=== PATIENT | male | born 1980 | race Caucasian/White ===

== ENCOUNTER 2019-06-28 04:03 | Inpatient (IN) ==
[2019-06-28] MEDS ORDERED: CLINDAMYCIN INJ 600 MG in PREMIX 1 EACH IV STA (04:50)
[2019-06-28] MEDS ORDERED: DIPH/TET/ACEL PERT BOOSTER VACCINE 0.5 ML VIAL IM ONE (04:50)
[2019-06-28] MEDS ORDERED: VANCOMYCIN INJ 1,000 MG in SODIUM CHLORIDE 0.9% 250 ML IV STA (05:42)
[2019-06-28 05:53] LABS: Basophils # 0.1 10*3/uL (0.0-0.2); Eosinophils # 0.4 10*3/uL (0.0-0.87); Eosinophils % 3.9 % (0.00-10.9); Hematocrit 43.7 VOL% (42.0-52.0); Hemoglobin 14.1 GM/DL (14.0-18.0); Immature Granulocytes % 1.8 %; Immature Granulocytes Absolute 0.17 #; Lymphocytes % 21.3 % (21.2-54.2); Mean Corpuscular HGB Conc 32.3 GM/DL (32-36); Mean Corpuscular Volume 89.5 FL (87-102); Mean Platelet Volume 9.9 FL (9.6-12.0); Monocytes % 11.6 % (1.7-12.7); Neutrophils % 60.4 % (38.7-73.9); Platelet Count 322 T/CUMM (130-400); Red Blood Count 4.88 MC/CUMM (3.8-5.5); Red Cell Distribution Width 12.1 % (9.3-17.3); White Blood Count 9.3 T/CUMM (4-12)
[2019-06-28 06:16] LABS: Albumin 3.1 G/DL (3.4-5.0); Bilirubin,Total 0.6 MG/DL (0.2-1.0); Calcium 8.9 MG/DL (8.5-10.1); Osmolality,Calculated 268.2 MOS/KG (273-304); Total Protein 7.5 G/DL (6.4-8.3)
[2019-06-28] MEDS ORDERED: hydrALAZINE 20 MG/1 ML VIAL IV PRN (06:22)
[2019-06-28 06:44] LABS: Eosinophils 8 % (0-10); Hypochromasia Slight; Lymphocytes 20 % (20-55); Platelet Estimate Adequate; Segmented Neutrophils 61 % (50-85); Total Cells Counted 100
[2019-06-28] MEDS ORDERED: VANCOMYCIN INJ 1,000 MG in SODIUM CHLORIDE 0.9% 250 ML IV ONE (06:44)
[2019-06-28] MEDS ORDERED: PIPERACILLIN/TAZOBACTAM 3,375 MG VIAL IV ONE (06:48)
[2019-06-28] MEDS ORDERED: SODIUM CHLORIDE 0.9% 100 ML IV ONE (06:48)
[2019-06-28] MEDS ORDERED: VANCOMYCIN 1,000 MG VIAL ONE (06:48)
[2019-06-28 07:18] LABS: HIV Antigen/Antibody Result Nonreactive (Nonreactive); Hepatitis B Surface Ag Quant < 0.10 Index; Hepatitis B Surface Ag Result Negative (Negative); Hepatitis C Virus Ab Quant 0.32 Index; Hepatitis C Virus Ab Result Negative (Negative)
[2019-06-28] MEDS: PIPERACILLIN/TAZOBACTAM 3,375 MG in SODIUM CHLORIDE 0.9% 100 ML IV SCH ×3 (07:24→23:13)
[2019-06-28] MEDS ORDERED: ENOXAPARIN 40 MG/0.4 ML SYRINGE SUBCUT SCH (08:00)
[2019-06-28] MEDS ORDERED: MEPERIDINE 25 MG/1 ML VIAL IV PRN (10:01)
[2019-06-28] MEDS ORDERED: ONDANSETRON 4 MG/2 ML VIAL IV PRN (10:01)
[2019-06-28] MEDS ORDERED: PROMETHAZINE INJ 25 MG in SODIUM CHLORIDE 0.9% 50 ML IV PRN (10:01)
[2019-06-28] MEDS ORDERED: diphenhydrAMINE 50 MG/1 ML VIAL IV PRN (10:01)
[2019-06-28] MEDS ORDERED: propofoL 200 MG/20 ML VIAL IV ONE (10:19)
[2019-06-28] MEDS ORDERED: LIDOCAINE 2% 5 ML VIAL ONE (10:19)
[2019-06-28] MEDS ORDERED: fentaNYL 100 MCG/2 ML VIAL ONE (10:20)
[2019-06-28] MEDS ORDERED: MIDAZOLAM 2 MG/2 ML VIAL ONE (10:20)
[2019-06-28] MEDS ORDERED: ONDANSETRON 4 MG/2 ML VIAL ONE (10:20)
[2019-06-28] MEDS ORDERED: SEVOFLURANE 1 UNIT/15 MINUTE INH ONE (10:20)
[2019-06-28] MEDS: MORPHINE 4 MG/1 ML VIAL IV PRN (12:59)
[2019-06-28] MEDS: VANCOMYCIN INJ 2,000 MG in SODIUM CHLORIDE 0.9% 500 ML IV SCH (13:03)
[2019-06-29] MEDS: VANCOMYCIN INJ 2,000 MG in SODIUM CHLORIDE 0.9% 500 ML IV SCH ×3 (00:17→23:59)
[2019-06-29 07:14] LABS: Basophils # 0.1 10*3/uL (0.0-0.2); Basophils % 1.1 % (0.0-0.8); Eosinophils # 0.2 10*3/uL (0.0-0.87); Eosinophils % 2.4 % (0.00-10.9); Hematocrit 44.7 VOL% (42.0-52.0); Hemoglobin 14.3 GM/DL (14.0-18.0); Immature Granulocytes % 0.9 %; Immature Granulocytes Absolute 0.08 #; Lymphocytes # 1.9 10*3/uL (1.4-4.0); Lymphocytes % 22.6 % (21.2-54.2); Mean Corpuscular Volume 89.4 FL (87-102); Mean Platelet Volume 9.5 FL (9.6-12.0); Monocytes % 8.7 % (1.7-12.7); Neutrophils % 64.3 % (38.7-73.9); Platelet Count 362 T/CUMM (130-400); White Blood Count 8.5 T/CUMM (4-12)
[2019-06-29 07:21] LABS: Calcium 8.7 MG/DL (8.5-10.1); Osmolality,Calculated 275.5 MOS/KG (273-304)
[2019-06-29 07:37] LABS: Eosinophils 4 % (0-10); Hypochromasia Slight; Lymphocytes 22 % (20-55); Platelet Estimate Adequate; Segmented Neutrophils 64 % (50-85); Total Cells Counted 100
[2019-06-29] MEDS: PIPERACILLIN/TAZOBACTAM 3,375 MG in SODIUM CHLORIDE 0.9% 100 ML IV SCH ×3 (08:50→23:58)
[2019-06-29] MEDS: FONDAPARINUX 2.5 MG/0.5 ML SYRINGE SUBCUT SCH (08:51)
[2019-06-29] MEDS ORDERED: KETOROLAC 30 MG/1 ML VIAL IV PRN (10:06)
[2019-06-30] MEDS: PIPERACILLIN/TAZOBACTAM 3,375 MG in SODIUM CHLORIDE 0.9% 100 ML IV SCH ×3 (09:29→23:43)
[2019-06-30] MEDS: FONDAPARINUX 2.5 MG/0.5 ML SYRINGE SUBCUT SCH (09:29)
[2019-06-30] MEDS: VANCOMYCIN INJ 2,000 MG in SODIUM CHLORIDE 0.9% 500 ML IV SCH ×2 (12:55→23:44)
[2019-06-30] MEDS: MORPHINE 4 MG/1 ML VIAL IV PRN ×2 (15:03→21:28)
[2019-07-01] MEDS: MORPHINE 4 MG/1 ML VIAL IV PRN (04:41)
[2019-07-01] MEDS: FONDAPARINUX 2.5 MG/0.5 ML SYRINGE SUBCUT SCH (09:32)
[2019-07-01] MEDS: VANCOMYCIN INJ 2,000 MG in SODIUM CHLORIDE 0.9% 500 ML IV SCH (11:55)
[2019-07-01 12:02] VITALS: BP 159/95
== END 2019-07-01 12:16 | disposition home or self-care (01) | DRG 571 ==
LOC: N.ED 04:03 → N.EDINP 05:49 → SUATTDRO 05:49 → N.2E 06:01
PROVIDERS: ADMIT Internal Medicine; ATTEND Internal Medicine